=== PATIENT | female | born 1980 | race Caucasian/White ===

== ENCOUNTER 2024-03-21 05:15 | Emergency (ER) | payer BC ==
[~2024-03-21] VITALS: Ht 167.6 cm; Wt 77.3 kg
[2024-03-21 05:48] LABS: COVID AG,FIA SOURCE NASAL SWAB
[2024-03-21 06:14] LABS: INFLUENZA TYPE A NEGATIVE FOR TYPE A (NEGATIVE); INFLUENZA TYPE B NEGATIVE FOR TYPE B (NEGATIVE); SARS-COV2 (COVID) ANTIGEN,FIA Negative (Negative)
[2024-03-21] MEDS: ACETAMINOPHEN 500 MG TABLET PO ONE (06:23)
[2024-03-21] MEDS ORDERED: KETOROLAC TROMETHAMINE 30 MG/ML VIAL IVP ONE (07:00)
[2024-03-21] MEDS: ONDANSETRON HCL 4 MG/2 ML VIAL IVP ONE (07:02)
[2024-03-21] MEDS: SODIUM CHLORIDE 0.9% 1,000 ML IV ONE (07:03)
[2024-03-21] MEDS: KETOROLAC TROMETHAMINE 15 MG/ML VIAL IVP ONE (07:06)
[2024-03-21 07:28] LABS: EOSINOPHILS % (AUTO) 0 % (1.0-6.0); HEMATOCRIT 40.8 % (36-46); HEMOGLOBIN 13.9 g/dL (12.0-16.0); LYMPHOCYTES # (AUTO) 0.7 K/uL (1.0-4.8); LYMPHOCYTES % (AUTO) 4.1 % (22.0-44.0); MEAN CORPUSCULAR HEMOGLOBIN 31.7 pg (26.0-34.0); MEAN CORPUSCULAR HGB CONC 34.1 G/dL (31.0-37.0); MEAN CORPUSCULAR VOLUME 93 fL (80-100); MONOCYTES # (AUTO) 1.6 K/uL (0.1-1.0); NEUTROPHILS # (AUTO) 13.6 K/uL (1.8-7.7); NEUTROPHILS % (AUTO) 84.9 % (40.0-70.0); PLATELET COUNT (AUTO) 241 K/uL (150-450); RED BLOOD CELL COUNT(AUTO) 4.39 MIL/uL (4.00-5.20); RED CELL DISTRIBUTION WIDTH 13.9 % (11.5-14.5)
[2024-03-21 07:42] LABS: ANION GAP 14 mmol/L (8-16); CALCIUM, TOTAL 8.5 mg/dL (8.8-10.5); CARBON DIOXIDE 23 mmol/L (22-29); CHLORIDE 97 mmol/L (98-107); GLOMERULAR FILTR. RATE CALC > 60 mL/min (>60); GLUCOSE,RANDOM 128 mg/dL (70-110); POTASSIUM 3.6 mmol/L (3.5-5.1); SODIUM SERUM 134 mmol/L (136-145); UREA NITROGEN, BLOOD 11 mg/dL (7-18)
[2024-03-21 07:50] LABS: ALANINE AMINOTRANSFERASE 42 U/L (12-78); ALBUMIN 3.4 g/dL (3.4-5.0); ALKALINE PHOSPHATASE 65 U/L (46-116); ASPARTATE AMINOTRANSFERASE 23 U/L (15-37); BILIRUBIN,TOTAL 0.4 mg/dL (0.1-1.0); HCG,QUANTITATIVE 1 mIU/mL (0-6); LIPASE 28 U/L (16-77); TOTAL PROTEIN, SERUM 7.8 g/dL (6.4-8.2)
[2024-03-21 08:54] LABS: APPEARANCE,URINE HAZY (CLEAR); COLOR,URINE YELLOW (YELLOW); GLUCOSE, URINE (UA) TRACE mg/dL (NEGATIVE); KETONES,URINE =>150 mg/dL (NEGATIVE); LEUKOCYTE ESTERASE ,URINE NEGATIVE (NEGATIVE); NITRATE,URINE NEGATIVE (NEGATIVE); OCCULT BLOOD,URINE TRACE (NEGATIVE); PROTEIN,URINE 300-600,SEE CONFIRM mg/dL (NEGATIVE); SPECIFIC GRAVITIY, URINE 1.039 (1.003-1.030)
[2024-03-21 08:55] LABS: BILIRUBIN,URINE SMALL (NEGATIVE); SULFOSALICYLIC ACID,URINE 3+ (Negative)
[2024-03-21 08:57] LABS: BACTERIA,URINE Many /HPF (None Seen); RBC,URINE 0-2 /HPF (0-2); SQUAMOUS EPITHELIAL CELL,UR Many /LPF (None Seen); WBC,URINE 0-2 /HPF (0-5)
[2024-03-21 09:17] VITALS: BP 110/60; PULSE 102; RESP 18; TEMP 98.5
[2024-03-21] MEDS ORDERED: ONDA-104 PO (09:18)
== END 2024-03-21 09:31 | disposition home or self-care (01) ==
LOC: EMS 05:19
DX: J11.1 Influenza due to unidentified influenza virus with other respiratory manifestations (principal); Z98.51 Tubal ligation status; Z20.822 Contact with and (suspected) exposure to COVID-19
CPT/HCPCS: 99285; 96374; 96361; 96375; 87426; 80053; 81001; 83690; 84702; 85025; 87804; 36415; 87086; 87186; J1885; J2405; J7030; 81002

== ENCOUNTER 2024-03-25 10:42 | Emergency (ER) | payer SELFPAY ==
[~2024-03-25] VITALS: Ht 167.6 cm; Wt 75.0 kg
[~2024-03-25 10:42] MED LIST: ONDA-104 PO
[2024-03-25 11:12] LABS: COVID AG,FIA SOURCE NASAL SWAB
[2024-03-25 12:31] LABS: INFLUENZA TYPE A NEGATIVE FOR TYPE A (NEGATIVE); INFLUENZA TYPE B NEGATIVE FOR TYPE B (NEGATIVE)
[2024-03-25 12:35] LABS: SARS-COV2 (COVID) ANTIGEN,FIA Negative (Negative)
[2024-03-25 13:18] LABS: BASOPHILS % (AUTO) 0.3 % (0.0-2.0); EOSINOPHILS % (AUTO) 0.5 % (1.0-6.0); HEMATOCRIT 42.5 % (36-46); HEMOGLOBIN 14.4 g/dL (12.0-16.0); LYMPHOCYTES % (AUTO) 6.4 % (22.0-44.0); MEAN CORPUSCULAR HEMOGLOBIN 31.3 pg (26.0-34.0); MEAN CORPUSCULAR VOLUME 92 fL (80-100); MONOCYTES # (AUTO) 1.9 K/uL (0.1-1.0); MONOCYTES % (AUTO) 11.8 % (2.0-9.0); NEUTROPHILS # (AUTO) 13.3 K/uL (1.8-7.7); PLATELET COUNT (AUTO) 341 K/uL (150-450); RED BLOOD CELL COUNT(AUTO) 4.61 MIL/uL (4.00-5.20); RED CELL DISTRIBUTION WIDTH 13.7 % (11.5-14.5); WHITE BLOOD COUNT (AUTO) 16.4 K/uL (4.5-11.0)
[2024-03-25 13:26] LABS: ANION GAP 14 mmol/L (8-16); CALCIUM, TOTAL 9.2 mg/dL (8.8-10.5); CARBON DIOXIDE 26 mmol/L (22-29); CHLORIDE 94 mmol/L (98-107); CREATININE 0.75 mg/dL (0.60-1.30); GLOMERULAR FILTR. RATE CALC > 60 mL/min (>60); GLUCOSE,RANDOM 119 mg/dL (70-110); POTASSIUM 3.1 mmol/L (3.5-5.1); SODIUM SERUM 134 mmol/L (136-145); UREA NITROGEN, BLOOD 7 mg/dL (7-18)
[2024-03-25] MEDS: ONDANSETRON HCL 4 MG/2 ML VIAL IVP ONE (13:30)
[2024-03-25] MEDS: SODIUM CHLORIDE 0.9% 1,000 ML IV ONE (13:30)
[2024-03-25 13:39] LABS: ALANINE AMINOTRANSFERASE 48 U/L (12-78); ALBUMIN 3.3 g/dL (3.4-5.0); ALKALINE PHOSPHATASE 105 U/L (46-116); ASPARTATE AMINOTRANSFERASE 30 U/L (15-37); BILIRUBIN,TOTAL 0.5 mg/dL (0.1-1.0); HCG,QUANTITATIVE < 1 mIU/mL (0-6); TOTAL PROTEIN, SERUM 8.5 g/dL (6.4-8.2)
[2024-03-25] MEDS: ALBUTEROL SULFATE HFA 90 MCG/PUFF 8 GM INHALER IH ONE (14:58)
[2024-03-25 15:00] VITALS: PULSE 109; RESP 20; O2SAT 99
[2024-03-25] MEDS: BENZONATATE 100 MG CAPSULE PO ONE (15:08)
[2024-03-25] MEDS: POTASSIUM CHLORIDE 20 MEQ ER TABLET PO ONE (15:08)
[2024-03-25] MEDS: AZITHROMYCIN 500 MG/NS 250 ML IV ONE (15:08)
[2024-03-25 15:16] VITALS: TEMP 98.6
[2024-03-25] MEDS ORDERED: AZIT250T9 PO (15:18)
[2024-03-25] MEDS ORDERED: BENZ-227 PO (15:18)
[2024-03-25] MEDS ORDERED: CORTSUSP AS (15:18)
[2024-03-25] MEDS: ACETAMINOPHEN 500 MG TABLET PO ONE (17:17)
[2024-03-25 17:26] VITALS: BP 124/66; PULSE 89; RESP 18
[2024-03-25 17:26] LABS: APPEARANCE,URINE HAZY (CLEAR); BILIRUBIN,URINE NEGATIVE (NEGATIVE); COLOR,URINE YELLOW (YELLOW); GLUCOSE, URINE (UA) NEGATIVE (NEGATIVE); KETONES,URINE =>150 mg/dL (NEGATIVE); LEUKOCYTE ESTERASE ,URINE NEGATIVE (NEGATIVE); NITRATE,URINE NEGATIVE (NEGATIVE); OCCULT BLOOD,URINE TRACE (NEGATIVE); PH,URINE 6.5 (5.0-8.0); PROTEIN,URINE 30-70 mg/dL (NEGATIVE); SPECIFIC GRAVITIY, URINE 1.027 (1.003-1.030)
[2024-03-25 17:36] LABS: SQUAMOUS EPITHELIAL CELL,UR Many /LPF (None Seen)
[2024-03-25 17:37] LABS: WBC,URINE 0-2 /HPF (0-5)
[2024-03-25 17:39] LABS: BACTERIA,URINE Many /HPF (None Seen)
== END 2024-03-25 18:25 | disposition home or self-care (01) ==
LOC: EMS 14:22
DX: H60.92 Unspecified otitis externa, left ear (principal); J18.9 Pneumonia, unspecified organism; Z98.51 Tubal ligation status; Z20.822 Contact with and (suspected) exposure to COVID-19
CPT/HCPCS: 99284; 96365; 71045; 96361; 96375; 87426; 80053; 81001; 83735; 84702; 85025; 87040; 87804; 36415; 87086; 87186; J0456; J2405; J7030; J3535